=== PATIENT | male | born 1980 | race African-American/Black ===

== ENCOUNTER 2025-01-22 18:42 | Emergency (ER) | payer OTHER ==
--- OUTSIDE RECORDS SUMMARY | 2025-01-22 18:47 | XMS REPORT | Continuity of Care Document ---
Author Name Unknown Address [address] [facility] [address] [place] [address] [facility] Address [address] [facility] [place] [address] Care Team Providers Care Parts Representative Name Role Phone AMOS PRITCHARD Attending Clinician Unavailable [id number] Attending Clinician Unavailable DARRICK ESTRADA Attending Clinician Unavailable Payers Payer Name Policy Type Policy Number Effective Date Expirati on Date Source [facility] 9 [id number] 2024 00:00:00 Problems Condition Name Condition Details Condition Category Status Onset Date Resolution Date Last Treatment Date Treating Clinician Comments Source Seasonal allergies Seasonal allergies Disease Active 10-23 00:00: 00 Ryan Seybold - Externa l Well adult exam Well adult exam Disease Active 10-23 00:00: 00 Ryan Seybold - Externa l HTN (hypertens ion) HTN (hypertens ion) Disease Active Ryan Seybold - Externa l Asthma (HHS-HCC) Asthma (HHS-HCC) Disease Active Ryan Seybold - Externa l Family history of prostate cancer in father Family history of prostate cancer in father Disease Active Ryan Seybold - Externa l Severe obesity Severe obesity Disease Active Ryan Seybold - Externa l Family history of lung cancer Family history of lung cancer Disease Active Ryan Seybold - Externa l Family history of glaucoma in mother Family history of glaucoma in mother Disease Active Ryan Seybold - Externa l Prediabete s Prediabete s Disease Active Ryan Seybold - Externa l Allergies, Adverse Reactions, Alerts Allergy Name Allergy Type Status Severity Reaction(s) Onset Date Inactive Date Treating Clinician Comments Source Penicill ins Propensi ty to adverse reaction s Active Anaphylaxis 916 00:00: 00 Ryan castillo Bee Venom Propensi ty to adverse reaction s Active Anaphylaxis 2-14 00:00: 00 Ryan Finnegana l Peanut Oil Propensi ty to adverse reaction s Active Anaphylaxis 214 00:00: 00 Ryan castillo Social History Social Habit Start Date Stop Date Quantity Comments Source Sexual orientation Earnest jakiquincy Marleni - External History of Occupation Ryan Yepez - External History of Social function 2024-10-23 00:00:00 2024-10-23 00:00:00 Ryan Yepez - External Alcoholic beverage intake 2024-10-23 00:00:00 2024-10-23 00:00:00 Lifetime non-drinker (finding) Ryan Yepez - External Education 2024-10-23 00:00:00 2024-10-23 00:00:00 16 Ryan Yepez - External Tobacco use and exposure 2024-10-08 00:00:00 2024-10-08 00:00:00 Smokeless tobacco non-user Ryan Yepez - External Sex 2024-01-21 09:40:57 2024-01-21 09:40:57 Male (finding) Ryan Yepez - External Sex assigned at 1980 00:00:00 1980 00:00:00 Ryan Yepez - External Smoking Status Start Date Stop Date Source Never smoked tobacco Ryan Yepez - External Medications Ordered Medication Name Filled Medication Name Start Date Stop Date Current Medication? Ordering Clinician Indication Dosage Frequency Signature (SIG) Comments Components Source [place]-3 Fatty Acids (Fish Oil) 1000 MG oral Capsule 10-23 14:58: 54 Yes 1000mg QD Take 1 capsule (1,000 mg total) by mouth daily. Ryan castillo Garlic 100 MG oral Tablet 10-23 14:58: 43 Yes 1{tbl} QD Take 1 tablet by mouth daily. Ryan castillo Albuterol HFA 108 (90 Base) MCG/ACT IN AERS 10-23 14:57: 38 10-23 00:00 :00 No [id number] 2{puff} Q.25D Inhale 2 puffs into the lungs every 6 hours as needed for wheezing. Ryan castillo Lisinopril 20 MG oral Tablet 10-23 00:00: 00 Yes [id number] 20mg QD Take 1 tablet (20 mg total) by mouth daily. Ryan castillo Montelukast (SINGULAIR) 10 MG oral Tablet tablet 10-23 00:00: 00 Yes [id number] 10mg QD Take 1 tablet (10 mg total) by mouth nightly. Ryan castillo Albuterol HFA 108 (90 Base) MCG/ACT IN [facility] 10-23 00:00: 00 Yes [id number] 2{puff} Q.25D Inhale 2 puffs into the lungs every 6 hours as needed for wheezing or shortness of breath. Ryan castillo Lisinopril 20 MG oral Tablet 10-08 09:27: 22 10-08 00:00 :00 No [id number] 20mg QD Take 1 tablet (20 mg total) by mouth daily. Ryan castillo Albuterol HFA 108 (90 Base) MCG/ACT IN [facility] 10-08 09:06: 26 Yes [id number] 2{puff} Q.25D Inhale 2 puffs into the lungs every 6 hours as needed for wheezing. Ryan castillo Montelukast (SINGULAIR) 10 MG oral Tablet tablet 10-08 00:00: 00 10-23 00:00 :00 No [id number] 10mg QD Take 1 tablet (10 mg total) by mouth nightly. Ryan castillo Lisinopril 20 MG oral Tablet 10-08 00:00: 00 10-23 00:00 :00 No [id number] 20mg QD Take 1 tablet (20 mg total) by mouth daily. Ryan castillo Vital Signs Vital Name Observation Time Observation Value Comments S ource Systolic blood pressure 2024-10-23 19:48:00 124 mm[Hg] Ryan Seybo ld - External Diastolic blood pressure 2024-10-23 19:48:00 84 mm[Hg] Ryan Seybo ld - External Heart rate 2024-10-23 19:48:00 68 /min Kelse y Seybold - External Body temperature 2024-10-23 19:48:00 36.67 Mera Ryan Seybold - External Respiratory rate 2024-10-23 19:48:00 15 /min Ryan Seybold - External Body height 2024-10-23 19:48:00 176.5 cm Natasha ey Seybold - External Body weight 2024-10-23 19:48:00 109.317 kg Natasha ey Seybold - External BMI 2024-10-23 19:48:00 35.08 kg/m2 Natasha ey Seybold - External Oxygen saturation in Arterial blood by Pulse oximetry 2024-10-23 19:48:00 98 /min Ryan Seybo ld - External Systolic blood pressure 2024-10-08 14:01:00 132 mm[Hg] Ryan Seybo ld - External Diastolic blood pressure 2024-10-08 14:01:00 84 mm[Hg] Ryan Seybo ld - External Heart rate 2024-10-08 14:01:00 80 /min Kelse y Seybold - External Body temperature 2024-10-08 14:01:00 36.67 Mera Ryan Seybold - External Respiratory rate 2024-10-08 14:01:00 18 /min Ryan Seybold - External Body height 2024-10-08 14:01:00 176.5 cm Natasha ey Seybold - External Body weight 2024-10-08 14:01:00 110.678 kg Natasha ey Seybold - External BMI 2024-10-08 14:01:00 35.52 kg/m2 Natasha ey Seybold - External Oxygen saturation in Arterial blood by Pulse oximetry 2024-10-08 14:01:00 99 /min Ryan Maynardybo ld - External Encounters Start Date/Time End Date/Time Encounter Type Admission Type Attending [facility] Care Department Encounter ID Source 2025-04-26 09:30:00 2025-04-26 09:30:00 Outpatient PREZAS, AMOS SELFSEY [id number] [facility] 2024-12-04 00:00:00 2024-12-04 00:00:00 Outpatient PRE[facility]AM[facility]isol[facility] [id number] [facility]24-10-23 15:45:00 2024-10-23 15:45:00 Outpatient [id number] RYAN DVAIS [id number] [facility] 2024-10-23 15:00:00 2024-10-23 15:00:00 Outpatient PREZAMarisol, AMOS DAVIS [id number] [facility] 2024-10-08 09:00:00 2024-10-08 09:00:00 Outpatient ESTRADA, DARRICK DAVIS [id number] [facility] 2024-09-26 14:30:00 2024-09-26 14:30:00 Outpatient ESTRADADARRICK DAVIS RYAN [id number] [facility] 2024-09-03 13:30:00 2024-09-03 13:30:00 Outpatient ESTRADA, DARRICK SELFSEY [id number] [facility] Notes Date/Time Note Provider Source 2024-10-23 14:51:41 Chief Complaint Patient presents with Physical Patient is fasting Shira Gay MA [facility] 2024-10-08 09:06:27 Chief Complaint Patient presents with ER F/U ER visit for heat echaustion Brittany Saucedo LVN [facility]
--- NOTE | 2025-01-22 20:29 | RAD REPORT ---
EXAMINATION: ONE VIEW CHEST XR CLINICAL INDICATION: Male, 44 years old.,DYSPNEA TECHNIQUE: Frontal chest projection is submitted. Examination is limited by patient positioning and t echnique. COMPARISON: 01/07/2025 FINDINGS: The lungs are well inflated and clear. No pneumothorax or sizable effusion. The heart is normal in s ize. Mediastinal contours are unremarkable. IMPRESSION: No acute intrathoracic abnormalities.
[2025-01-22] MEDS ORDERED: ACETAMINOPHEN 500 MG TAB ONE (20:31)
--- NOTE | 2025-01-22 20:42 | ER ---
Nurse's Notes [facility] Name: Sidney Rangel Age: 44 yrs Sex: Male : 1980 Arrival Date: 01/22/2025 Time: 18:42 Bed 10 Private MD: Diagnosis: Dyspnea Presentation: 01/22 18:51 Chief complaint: Patient states: was exposed to black mold 2 months ago , has been iw having breathing issues and headaches since then. Coronavirus screen: At this time, the client does not indicate any symptoms associated with coronavirus-19. Ebola Screen: No symptoms or risks identified at this time. Initial Sepsis Screen: Does the patient meet any 2 criteria? No. Patient's initial sepsis screen is negative. Does the patient have a suspected source of infection?. Risk Assessment: Do you want to hurt yourself or someone else? Patient reports no desire to harm self or others. Onset of symptoms was October 2024. 18:51 Method Of Arrival: Ambulatory iw 18:51 Acuity: SUAD 4 iw Historical: - Allergies: 18:52 No Known Allergies; iw - Home Meds: 19:10 lisinopril Oral [Active]; kt5 - PMHx: 18:52 Hypertension; iw - PSHx: 18:52 Cholecystectomy; iw - Immunization history:: Adult Immunizations not up to date. - Infectious Disease History:: Denies. - Social history:: Smoking status: Patient denies any tobacco usage or history of. Screenin:21 [facility] ED Fall Risk Assessment (Adult) History of falling in the last 3 months, kt5 including since admission No falls in past 3 months (0 pts) Confusion or Disorientation No (0 pts) Intoxicated or Sedated No (0 pts) Impaired Gait No (0 pts) Mobility Assist Device Used No (0 pt) Altered Elimination No (0 pt) Score/Fall Risk Level 0 - 2 = Low Risk Oriented to surroundings, Maintained a safe environment. Abuse screen: Denies threats or abuse. Nutritional screening: No deficits noted. Tuberculosis screening: No symptoms or risk factors identified. Assessment: 19:06 General: received report from licensed staff mftcary botello, all questions answered. kt5 19:21 General: Appears in no apparent distress. comfortable, Behavior is calm, cooperative, kt5 appropriate for age. Pain: Complains of pain in top of head, forehead, right zoroastrian and left zoroastrian. Neuro: No deficits noted. Asher Agitation-Sedation Scale (RASS): 0 - Alert and Calm Level of Consciousness is awake, alert, obeys commands, Oriented to person, place, time, situation. Cardiovascular: Reports chest pain, shortness of breath, since intermittent cp for 4 months after being "exposed to black mold" Heart tones S1 S2 present Capillary refill < 3 seconds is brisk Clubbing of nail beds is absent JVD is absent Pulses are all present. Edema is absent. Respiratory: No deficits noted. Reports shortness of breath on exertion intermittent sob for 4 months after being "exposed to black mold" Airway is patent Trachea midline Respiratory effort is even, unlabored, Respiratory pattern is regular, symmetrical, Breath sounds are clear bilaterally. GI: No deficits noted. No signs and/or symptoms were reported involving the gastrointestinal system. Abdomen is round non-distended, Bowel sounds present X 4 quads. Abd is soft and non tender X 4 quads. : No deficits noted. No signs and/or symptoms were reported regarding the genitourinary system. EENT: No deficits noted. No signs and/or symptoms were reported regarding the EENT system. Derm: No deficits noted. No signs and/or symptoms reported regarding the dermatologic system. Skin is intact, is healthy with good turgor, Skin is dry, Skin is pink, warm \\T\\ dry. normal. Musculoskeletal: No deficits noted. No signs and/or symptoms reported regarding the musculoskeletal system. 20:01 Reassessment: Patient appears in no apparent distress at this time. Patient and/or kt5 family updated on plan of care and expected duration. Pain level reassessed. Patient is alert, oriented x 3, equal unlabored respirations, skin warm/dry/pink. pt alo4, nad, waiting dispo. 20:47 Reassessment: Patient appears in no apparent distress at this time. Patient and/or kt5 family updated on plan of care and expected duration. Pain level reassessed. Patient is alert, oriented x 3, equal unlabored respirations, skin warm/dry/pink. Patient states symptoms have improved. Vital Signs: 18:53 BP 143 / 87; Pulse 85; Resp 18; Temp 97.6; Pulse Ox 99% on R/A; Weight 112.49 kg; iw Height 5 ft. 10 in. ; 20:58 BP 140 / 109; Pulse 62; Resp 18; Temp 98; Pulse Ox 100% ; Pain 4/10; kt5 18:53 Body Mass Index 35.58 (112.49 kg, 177.8 cm) iw 20:58 Pain Scale: Adult kt5 ED Course: 18:46 Patient arrived in ED. im 18:50 Sarah Ramsey [facility]-C [facility] kb 18:50 Rivera Henderson DO is Attending Physician. kb 18:52 Triage completed. iw 19:10 Arm band placed on left wrist. kt5 19:21 Call light in reach. Adult w/ patient. Client placed on continuous cardiac and pulse kt5 oximetry monitoring. NIBP monitoring applied. Door closed. Noise minimized. 19:21 No provider procedures requiring assistance completed. kt5 19:44 Chest Single View XRAY In Process Unspecified. EDMS 20:01 Shelia Moore, RN is Primary Nurse. kt5 20:58 Provided Education on: follow up. kt5 Administered Medications: 20:35 Drug: Acetaminophen PO 1000 mg PO once Route: PO; kt5 21:01 Follow up: Response: No adverse reaction; Pain is decreased kt5 Medication: 19:21 VIS not applicable for this client. kt5 Outcome: 20:42 Discharge ordered by MD. kb 20:58 Discharged to home ambulatory, with family, kt5 20:58 Condition: stable 20:58 Discharge instructions given to patient, family, Instructed on discharge instructions, follow up and referral plans. Demonstrated understanding of instructions, follow-up care, 21:02 Patient left the ED. kt5 Signatures: Dispatcher [employer] EDIA Sarah Ramsey FNP-C FNP-Rain Carmen, RN RN Daisy Christianson Shelia Moore, RN RN kt5 Corrections: (The following items were deleted from the chart) 18:54 18:53 Pulse 85bpm; Resp 18bpm; Pulse Ox 99% RA; iw iw 19:28 19:21 Cardiovascular: Reports chest pain, Heart tones S1 S2 present Capillary refill < kt5 3 seconds is brisk Clubbing of nail beds is absent JVD is absent Pulses are all present. Edema is absent. kt5 19:28 19:21 Respiratory: No deficits noted. Airway is patent Trachea midline Respiratory kt5 effort is even, unlabored, Respiratory pattern is regular, symmetrical, kt5 19:28 19:21 Cardiovascular: Reports shortness of breath, Chest pain intermittent cp for 4 kt5 months. kt5
--- NOTE | 2025-01-22 20:42 | EDPHYS ---
Physician Documentation [facility] Name: Sidney Rangel Age: 44 yrs Sex: Male : 1980 Arrival Date: 01/22/2025 Time: 18:42 Bed 10 Private MD: ED Physician Rivera Henderson HPI: 01/22 20:58 This 44 yrs old Black Male presents to ER via Ambulatory with complaints of black mold kb exposure. 20:58 Patient is a 44-year-old male who presents for cough, shortness of breath and headaches kb that started 2 months ago. States they have black mold in their apartment and he believes that that is what is causing the symptoms. has similar symptoms. Historical: - Allergies: 18:52 No Known Allergies; iw - Home Meds: 19:10 lisinopril Oral [Active]; kt5 - PMHx: 18:52 Hypertension; iw - PSHx: 18:52 Cholecystectomy; iw - Immunization history:: Adult Immunizations not up to date. - Infectious Disease History:: Denies. - Social history:: Smoking status: Patient denies any tobacco usage or history of. ROS: 20:58 Constitutional: As per HPI kb Exam: 20:58 Constitutional: This is a well developed, well nourished patient who is awake, alert, kb and in no acute distress. Head/Face: Normocephalic, atraumatic. ENT: Moist Mucous membranes Cardiovascular: Regular rate Respiratory: Respirations even and unlabored. No increased work of breathing. Talking in full sentences Skin: Warm, dry with normal turgor. Normal color. MS/ Extremity: Pulses equal, no cyanosis. Neurovascular intact. Full, normal range of motion. Neuro: Awake and alert, GCS 15, oriented to person, place, time, and situation. Vital Signs: 18:53 BP 143 / 87; Pulse 85; Resp 18; Temp 97.6; Pulse Ox 99% on R/A; Weight 112.49 kg; iw Height 5 ft. 10 in. ; 20:58 BP 140 / 109; Pulse 62; Resp 18; Temp 98; Pulse Ox 100% ; Pain 4/10; kt5 18:53 Body Mass Index 35.58 (112.49 kg, 177.8 cm) iw 20:58 Pain Scale: Adult kt5 MDM: 18:50 Medical Screening Exam initiated kb 20:59 Data reviewed: vital signs, nurses notes. kb 01/22 18:58 Order name: Chest Single View XRAY; Complete Time: 20:33 kb Administered Medications: 20:35 Drug: Acetaminophen PO 1000 mg PO once Route: PO; kt5 21:01 Follow up: Response: No adverse reaction; Pain is decreased kt5 Disposition: 01/23 07:43 I was immediately available on-site in the Emergency Department for consultation in the ms3 care of the patient. Disposition Summary: 01/22/25 20:42 Discharge Ordered Notes: Location: Home kb Condition: Stable kb Diagnosis - Dyspnea kb Followup: kb - With: Emergency Department - When: As needed - Reason: Worsening of condition Followup: kb - With: Private Physician - When: 2 - 3 days - Reason: Recheck today's complaints, Continuance of care, Re-evaluation by your physician Discharge Instructions: - Discharge Summary Sheet kb - Shortness of Breath, Adult, Gdwk-[id number] kb Forms: - Work release form kb - Medication Reconciliation Form kb - Antibiotic Education kb - Prescription Opioid Use kb - Patient Portal Instructions kb - Leadership Thank You Letter kb Signatures: Dispatcher [employer] EDMS Sarah Ramsey, CUTTER ALUMINUM SHEET-C CUTTER ALUMINUM SHEET-Ckb Rain Noonan, RN RN iw Rivera Henderson DO DO ms3 Shelia Moore, APRIL RN kt5 Corrections: (The following items were deleted from the chart) 01/22 18:59 18:59 Chest Single View+[id number].[email or web address] ordered. EDMS EDMS
[2025-01-22 21:16] VITALS: BP 140/109; TEMP 98; O2SAT 100
== END 2025-01-22 21:02 | disposition home or self-care (01) ==
LOC: ER 18:42
DX: R06.00 Dyspnea, unspecified (principal); I10 Essential (primary) hypertension
CPT/HCPCS: 71045; 99283